=== PATIENT | female | born 1990 | race African-American/Black ===

== ENCOUNTER 2016-05-25 18:54 | Emergency (ER) | payer OTHER ==
[~2016-05-25] VITALS: Ht 167.6 cm; Wt 86.0 kg
[2016-05-25 18:58] VITALS: BP 135/63; PULSE 108; RESP 16; O2SAT 97
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
[2016-05-25] MEDS ORDERED: AUGM875T PO (21:38)
[2016-05-25 21:53] VITALS: BP 156/74
== END 2016-05-25 21:54 | disposition home or self-care (01) ==
LOC: NEPB 18:54
DX: T14.8 Other injury of unspecified body region (principal); S00.81XA Abrasion of other part of head, initial encounter; S60.512A Abrasion of left hand, initial encounter; S60.511A Abrasion of right hand, initial encounter; Y04.2XXA Assault by strike against or bumped into by another person, initial encounter
CPT/HCPCS: 70450; 70486; 84703